=== PATIENT | female | born 1960 | race Caucasian/White ===

== ENCOUNTER 2017-04-03 10:11 | Outpatient (CLI) | payer OTHER | END 2017-04-03 10:12 | disposition home or self-care (01) | LOC: SC 10:11 | PROVIDERS: ATTEND Nurse Practitioner Family | DX: G47.61 Periodic limb movement disorder (principal); G47.26 Circadian rhythm sleep disorder, shift work type ==

== ENCOUNTER 2017-05-27 14:47 | Outpatient (CLI) | payer OTHER | END 2017-05-27 14:48 | disposition home or self-care (01) | LOC: SC 14:47 | PROVIDERS: ATTEND Nurse Practitioner Family | DX: G47.26 Circadian rhythm sleep disorder, shift work type (principal) | CPT/HCPCS: 99212; 99214 ==